=== PATIENT | male | born 1950 | race Hispanic/Latino ===

== ENCOUNTER 2018-08-07 12:14 | Observation (INO) | payer MEDICARE ==
[~2018-08-07] VITALS: Ht 160 cm; Wt 71.8 kg
[2018-08-07] MEDS ORDERED: NITROGLYCERIN 2% OINT 1 GM PKT TOP ONE (12:30)
[2018-08-07] MEDS ORDERED: ASPIRIN 81 MG CHEW TAB PO ONE ×3 (12:30→14:45)
[2018-08-07 12:38] LABS: BASOPHILS % 0.5 % (0.0-1.0); EOSINOPHILS # (AUTO) 0.1 (0.0-0.4); EOSINOPHILS % 1.3 % (0.0-6.0); HEMATOCRIT 44.7 % (38.2-49.6); HEMOGLOBIN 15.4 g/dL (14.0-18.0); LYMPHOCYTES # (AUTO) 1.4 (1.0-3.2); LYMPHOCYTES % 17.8 % (18.0-39.1); MEAN CORPUSCULAR HEMOGLOBIN 29.8 pg (28-32); MEAN CORPUSCULAR HGB CONC 34.5 g/dL (31-35); MEAN CORPUSCULAR VOLUME 86.5 fL (81-99); MONOCYTES % 12.3 % (4.4-11.3); NEUTROPHILS # (AUTO) 5.3 (2.1-6.9); NEUTROPHILS % 67.8 % (38.7-80.0); PLATELET COUNT 261 x10e3/uL (140-360); RED BLOOD COUNT 5.17 x10e6/uL (4.3-5.7); RED CELL DISTRIBUTION WIDTH 13.2 % (11.7-14.4)
[2018-08-07 12:51] LABS: INR 1.15; PROTHROMBIN TIME 13.8 seconds (11.9-14.5)
[2018-08-07 12:52] LABS: PARTIAL THROMBOPLASTIN TIME 30.6 seconds (23.8-35.5)
[2018-08-07 12:58] LABS: ALANINE AMINOTRANSFERASE 22 IU/L (0-55); ALBUMIN 3.8 g/dL (3.5-5.0); ALBUMIN/GLOBULIN RATIO 1.2 (0.8-2.0); ALKALINE PHOSPHATASE 63 IU/L (40-150); ANION GAP 14.8 mmol/L (8-16); BLOOD UREA NITROGEN 13 mg/dL (7-26); BUN/CREATININE RATIO 13 (6-25); CALCIUM 9.6 mg/dL (8.4-10.2); CARBON DIOXIDE 26 mmol/L (22-29); CHLORIDE 105 mmol/L (98-107); CREATINE KINASE 68 IU/L (30-200); EST GLOMERULAR FILTRATION RATE > 60 ML/MIN (60-); GLUCOSE 87 mg/dL (74-118); POTASSIUM 3.8 mmol/L (3.5-5.1); SODIUM 142 mmol/L (136-145)
--- NOTE | 2018-08-07 14:34 | Diagnostic Imaging Report ---
A single frontal view of the chest. HISTORY: Chest pain, chest tightness, hard to breathe, one week COMPARISON: None available. DISCUSSION: Portable technique, limits sensitivity of the exam. Soft tissue attenuation partially limits sensitivity of the exam. Multiple overlying monitoring leads. Tubes/Lines: None Lungs and pleura: Low lung volumes result in bibasilar vascular crowding, accentuation of the pulmonary interstitial markings, central pulmonary vasculature, and the cardiac silhouette. Allowing for these limitations, the findings are as follows: No evidence of a consolidative pneumonia or pulmonary alveolar edema. No definite pleural effusion or pneumothorax is identified. Heart and mediastinum: The cardiomediastinal silhouette appears unremarkable. Bones: No acute osseous lesion is identified, given this limited exam. IMPRESSION: No acute radiographic abnormality. Signed by: Dr. Haseeb Fields D.O., M.M.M. on 08/07/2018 2:30 PM
[2018-08-07] MEDS ORDERED: ONDANSETRON HCL INJ 2 MG/ML VIAL IV PRN (14:45)
[2018-08-07] MEDS ORDERED: ENOXAPARIN INJ 80 MG/0.8 ML SYR SC SCH (15:00)
[2018-08-07] MEDS ORDERED: IRBESARTAN150 MG PO (15:07)
[2018-08-07] MEDS ORDERED: METFORMIN HCL500 M2 PO (15:07)
[2018-08-07] MEDS ORDERED: PRAVASTATIN SOD40 MG (15:07)
[2018-08-07] MEDS ORDERED: GLIMEPIRIDE2 MG PO (15:07)
[2018-08-07] MEDS ORDERED: DEXTROSE 50% SYRINGE 50 ML IV PRN (15:45)
[2018-08-07 16:00] VITALS: BP 122/69
[2018-08-07] MEDS ORDERED: NITROGLYCERIN 0.4 MG SUBL SL PRN (16:15)
[2018-08-07 16:20] VITALS: BP 122/69
[2018-08-07 16:23] VITALS: BP 122/69
[2018-08-07] MEDS: INSULIN REGULAR, HUMAN 100 UNIT/1 ML 3ML VIAL SQ SCH ×2 (16:30→21:00)
[2018-08-07] MEDS: METOPROLOL TARTRATE 25 MG TAB PO SCH (16:49)
[2018-08-07] MEDS ORDERED: CLOPIDOGREL BISULFATE 75 MG TAB PO ONE (17:10)
[2018-08-07] MEDS ORDERED: ENOXAPARIN INJ 80 MG/0.8 ML SYR SC NR (17:30)
[2018-08-07] MEDS ORDERED: NITROGLYCERIN 2% OINT 1 GM PKT TOP SCH (18:00)
[2018-08-07 20:00] VITALS: BP 122/58
[2018-08-07] MEDS ORDERED: ATORVASTATIN 20 MG TAB PO SCH (21:00)
[2018-08-07 21:14] LABS: CREATINE KINASE 58 IU/L (30-200)
--- NOTE | 2018-08-07 21:51 | Consultation ---
DATE OF CONSULTATION: August 07, 2018 CARDIOLOGY CONSULTATION REASON FOR CONSULTATION: Chest pain. HISTORY OF PRESENT ILLNESS: Mr. Easton is a 67-year-old gentleman with past medical history of hypertension, type 2 diabetes for the past 4 years, hypercholesterolemia, positive family history of coronary artery disease in his father who in his 80s with a heart attack, who also has a remote history of abnormal stress test in 2010 that was not subsequently followed by further care and management. Patient is on testosterone shots every so often for hormonal replacement therapy and received his last dose on Monday. Patient then approximately 24 hours later started developing substernal chest pressure, tightness, heaviness sensation that is brought upon with minimal activity and exertion and has been progressively worsening fatigue and new-onset exercise intolerance. He thought that this initially was a reaction to the testosterone therapy, however, his symptoms had progressively worsened. He went to go see his physicians at [facility] and developed an episode of chest pressure, tightness, heaviness, very typical angina symptoms which prompted STAT EKG and 911 being called in the clinic. Patient was brought over to this institution where he was placed on a nitro patch, which subsequently improved his symptoms and reports now the chest pain is about a 1/10 in intensity. The tightness does not radiate, it is worsened with activity and is very typical anginal in nature. His first biomarkers shows a troponin of less than 0.001, and EKG shows subtle T-wave changes in inferior leads, which could be consistent with ischemia. We had a long discussion with the patient in terms of management options including observation versus ischemic risk stratification versus direct cardiac catheterization. PAST MEDICAL HISTORY: 1. Hypertension, essential. 2. Type 2 diabetes, diagnosed 4 years ago. 3. Hypercholesterolemia. 4. Hypogonadism, on testosterone replacement therapy. PAST SURGICAL HISTORY: 1. 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 2. History of kidney stone removal many years ago. FAMILY HISTORY: Mother alive, has heart issues. Father at age of 80 with a heart attack. SOCIAL HISTORY: He is a lifelong nonsmoker. Denies any alcohol or illicit drug use. ALLERGIES: NO KNOWN DRUG ALLERGIES. HOME MEDICATIONS: Include: 1. Glimepiride 2 mg t.i.d. 2. Irbesartan 150 mg nightly. 3. Metformin 1000 mg b.i.d. 4. Pravastatin 40 mg nightly. REVIEW OF SYSTEMS: GENERAL: Denies any fevers, chills, or any weight changes. HEENT: No headaches, visual complaints, sore throat, stuffy nose. RESPIRATORY: Denies any pleuritic chest pain. Has exertional dyspnea with worsening exercise tolerance. CARDIOVASCULAR: As per HPI. Denies any subjective palpitations, syncope, near syncope. GI: Denies any abdominal pain, bright red blood per rectum, melena, hematemesis. : Denies any dysuria, pyuria, hematuria, or changes in urinary frequency. MUSCULOSKELETAL: Denies any back pains, knee pains, or typical claudication symptoms or swelling. NEUROLOGIC: Denies any focal weakness, numbness, tingling, seizures, headaches, history of TIA or stroke. Remainder of review of systems negative otherwise mentioned. PHYSICAL EXAMINATION: VITAL SIGNS: Height of 63 inches, weight 152 pounds. BMI is 26.9. Temperature of 96.5, pulse of 65, respiratory rate of 19, blood pressure 122/69, O2 sat 94% on room air. GENERAL: This is a well-nourished, well-developed gentleman, who is currently in no apparent distress. HEENT: Pupils are equal, round, and reactive to light. Extraocular movements are intact. Oropharynx is clear. NECK: No elevation of jugular venous pulsation. No carotid bruits. CARDIOVASCULAR: Regular rate and rhythm. Normal S1 and S2. Soft 1/6 systolic murmur at the left lower sternal border. LUNGS: Showed some bibasilar crackles and decreased air entry. ABDOMEN: Soft, nontender, nondistended. Normoactive bowel sounds. No hepatosplenomegaly. There is stigmata of old laparoscopic surgical scar. EXTREMITIES: Warm with 2+ bilateral radial pulses, 1+ to 2+ bilateral femoral pulses, 1+ pedal pulses. NEUROLOGIC: Cranial nerves II-XII are intact. Strength is 5/5 and grossly nonfocal. PSYCH: Normal fluent speech. Appropriate affect. No anxiety and delusions. Chest x-ray reveals bibasilar atelectasis. EKG reveals sinus rhythm, subtle T-wave changes in the inferior leads could be consistent with ischemia. DIAGNOSES: 1. Clinical presentation very compatible with unstable angina pectoris. 2. History of abnormal stress test. 3. Hypertension, essential. 4. Type 2 diabetes. 5. Hypercholesterolemia. 6. Questionable pulmonary edema on examination and may be some early heart failure. PLAN/RECOMMENDATIONS: 1. From a cardiovascular standpoint, will go ahead and monitor on telemetry, check serial cardiac biomarkers, load him on aspirin, and give him 600 mg Plavix load. 2. Will give him 1 dose of subcutaneous Lovenox for systemic anticoagulant therapy for management of ACS. 3. Will cycle cardiac enzymes. 4. Check echocardiogram. 5. Beta-elmer therapy, statin therapy. 6. I will check lipid profile, A1c, TSH. 7. Largely patient has such a high pretest probability of CAD with very typical CCS for angina symptoms, that has been escalating with a history of abnormal stress test. Based on appropriate next step therapy, patient needs definitive ischemic evaluation without coronary angiography and with an eye towards revascularization. Job#: [id number]
[2018-08-07] MEDS: SODIUM CHLORIDE 0.9% 1000ML 1,000 ML IV SCH (23:31)
[2018-08-08] VITALS (15 sets, daily range): BP systolic 121–171; BP diastolic 25–89
[2018-08-08 04:48] LABS: BASOPHILS % 0.4 % (0.0-1.0); EOSINOPHILS # (AUTO) 0.2 (0.0-0.4); EOSINOPHILS % 2.1 % (0.0-6.0); HEMATOCRIT 40.9 % (38.2-49.6); HEMOGLOBIN 13.7 g/dL (14.0-18.0); LYMPHOCYTES # (AUTO) 1.5 (1.0-3.2); LYMPHOCYTES % 14.2 % (18.0-39.1); MEAN CORPUSCULAR HEMOGLOBIN 29.6 pg (28-32); MEAN CORPUSCULAR HGB CONC 33.5 g/dL (31-35); MEAN CORPUSCULAR VOLUME 88.3 fL (81-99); MONOCYTES # (AUTO) 1.3 (0.2-0.8); MONOCYTES % 12.5 % (4.4-11.3); NEUTROPHILS # (AUTO) 7.2 (2.1-6.9); PLATELET COUNT 244 x10e3/uL (140-360); RED BLOOD COUNT 4.63 x10e6/uL (4.3-5.7); RED CELL DISTRIBUTION WIDTH 13.5 % (11.7-14.4)
[2018-08-08 04:59] LABS: INR 1.21; PROTHROMBIN TIME 14.4 seconds (11.9-14.5)
[2018-08-08 05:09] LABS: ANION GAP 14.3 mmol/L (8-16); BLOOD UREA NITROGEN 17 mg/dL (7-26); BUN/CREATININE RATIO 15 (6-25); CALCIUM 8.8 mg/dL (8.4-10.2); CARBON DIOXIDE 27 mmol/L (22-29); CHLORIDE 105 mmol/L (98-107); CHOLESTEROL 137 MD/DL (0-199); CREATININE, SERUM 1.11 mg/dL (0.72-1.25); EST GLOMERULAR FILTRATION RATE > 60 ML/MIN (60-); GLUCOSE 103 mg/dL (74-118); HDL CHOLESTEROL 34 MG/DL (40-60); LDL CHOLESTEROL 85 MG/DL (60-130); POTASSIUM 4.3 mmol/L (3.5-5.1); SODIUM 142 mmol/L (136-145); TRIGLYCERIDES 92 MG/DL (0-149)
[2018-08-08] MEDS: INSULIN REGULAR, HUMAN 100 UNIT/1 ML 3ML VIAL SQ SCH ×4 (07:30→21:00)
[2018-08-08] MEDS: SODIUM CHLORIDE 0.9% 1000ML 1,000 ML IV SCH ×2 (07:50→20:11)
[2018-08-08 08:05] LABS: CREATINE KINASE 47 IU/L (30-200)
[2018-08-08] MEDS: METOPROLOL TARTRATE 25 MG TAB PO SCH ×2 (08:12→16:45)
[2018-08-08] MEDS ORDERED: ASPIRIN 81 MG ENTERIC COATED PO SCH (09:00)
[2018-08-08] MEDS ORDERED: LIDOCAINE HCL 2% LOCAL 20 ML VIAL ONE (10:25)
[2018-08-08] MEDS ORDERED: HEPARIN SOD/SOD CHLORIDE 2,000 ML ONE (10:25)
[2018-08-08] MEDS ORDERED: IOPAMIDOL 370 MG/ML 200 ML INFUS..BTL INJ ONE ×2 (10:26→11:20)
[2018-08-08] MEDS ORDERED: FENTANYL CITRATE/PF 100MCG/2 ML INJ ONE (10:35)
[2018-08-08] MEDS ORDERED: SODIUM CHLORIDE 0.9% 1000ML 1,000 ML ONE (10:35)
[2018-08-08] MEDS ORDERED: MIDAZOLAM HCL 2 MG/2 ML VIAL ONE (10:35)
[2018-08-08] MEDS ORDERED: BIVALRIUDIN 250 MG/VIAL VIAL IV ONE (11:09)
[2018-08-08] MEDS ORDERED: SODIUM CHLORIDE 0.9% 50ML 50 ML ONE (11:10)
[2018-08-08] MEDS ORDERED: NITROGLYCERIN/D5W 200 MCG/ML 250 ML ONE (11:12)
[2018-08-08] MEDS ORDERED: CLOPIDOGREL BISULFATE 75 MG TAB ONE (11:36)
[2018-08-08] MEDS ORDERED: CEFAZOLIN SOD 2 GM/D5W 50ML 50 ML IV ONE (11:36)
--- NOTE | 2018-08-08 12:39 | Operative Report ---
DATE OF PROCEDURE: August 08, 2018 TITLE OF PROCEDURE: Left cardiac catheterization. INDICATIONS: Unstable coronary syndrome. TECHNICAL DETAILS: After the usual sterile preparation and draping procedure, intravenous Versed and fentanyl given for sedation, local Xylocaine for anesthesia. A 4-Namibian sheath established in place. Starr left 4 and 3DRC catheters to engage the coronary. Pigtail for left ventriculogram and hemodynamic measurement. A decision was made to proceed with intervention. The existing 4-Namibian sheath was exchanged to 6-Namibian sheath. Guiding catheter was 6-Namibian XB3.5. Stenting was 2-5 x 15 and 2-5 x 12 Resolute Pierce stent. The proximal stent deployed at 17 atmospheres, the distal stent at 12 atmospheres because of mismatch in size. Repeated angiogram showed excellent results. Successful closure of the right common femoral artery was done with AngioSeal device. No complication and no blood loss. RESULTS A. Coronary angiogram 1. Left main free of disease. 2. LAD 99% lesion after a small diagonal 50% mid to distal part. 3. Circumflex coronary artery, minimal plaquing. 4. Right coronary artery 30% ostial lesion. B. Hemodynamic; aorta pressure 155/84, LV pressure 155/20. C. Left ventriculogram is a right anterior oblique view showed normal size ventricle with ejection fraction of 55%. PCI procedure, guiding catheter is 6-Namibian XB3 LAD wire stent 2-5 x 15 and 2-5 x 12, [place] stent up to 17 atmosphere and 12 atmospheres. Lesion prior to intervention at 99% following intervention at 0 percent. COMPLICATIONS: None. BLOOD LOSS: Minimum. Job#: [id number] CELESTE
[2018-08-08] MEDS: ASPIRIN 81 MG ENTERIC COATED PO SCH (16:59)
[2018-08-08] MEDS ORDERED: ACETAMINOPHEN 325 MG TAB PO PRN (20:30)
[2018-08-08] MEDS ORDERED: ACETAMINOPHEN/CODEINE 300MG - 30MG TAB PO PRN (20:30)
[2018-08-08] MEDS ORDERED: ATORVASTATIN 20 MG TAB PO SCH (21:00)
[2018-08-09] VITALS: BP 147/82
[2018-08-09 04:00] VITALS: BP 161/95
[2018-08-09 04:38] LABS: BASOPHILS % 0.4 % (0.0-1.0); EOSINOPHILS # (AUTO) 0.2 (0.0-0.4); HEMATOCRIT 40.3 % (38.2-49.6); HEMOGLOBIN 13.5 g/dL (14.0-18.0); LYMPHOCYTES # (AUTO) 1.7 (1.0-3.2); LYMPHOCYTES % 23.3 % (18.0-39.1); MEAN CORPUSCULAR HGB CONC 33.5 g/dL (31-35); MEAN CORPUSCULAR VOLUME 89.6 fL (81-99); MONOCYTES # (AUTO) 1.1 (0.2-0.8); MONOCYTES % 14.6 % (4.4-11.3); NEUTROPHILS # (AUTO) 4.4 (2.1-6.9); NEUTROPHILS % 59.6 % (38.7-80.0); PLATELET COUNT 214 x10e3/uL (140-360); RED CELL DISTRIBUTION WIDTH 13.5 % (11.7-14.4)
[2018-08-09 04:56] LABS: ANION GAP 13.3 mmol/L (8-16); BLOOD UREA NITROGEN 11 mg/dL (7-26); BUN/CREATININE RATIO 10 (6-25); CALCIUM 8.2 mg/dL (8.4-10.2); CARBON DIOXIDE 24 mmol/L (22-29); CHLORIDE 108 mmol/L (98-107); CREATININE, SERUM 1.12 mg/dL (0.72-1.25); EST GLOMERULAR FILTRATION RATE > 60 ML/MIN (60-); GLUCOSE 99 mg/dL (74-118); POTASSIUM 4.3 mmol/L (3.5-5.1); SODIUM 141 mmol/L (136-145)
[2018-08-09] MEDS: SODIUM CHLORIDE 0.9% 1000ML 1,000 ML IV SCH (05:53)
[2018-08-09 08:00] VITALS: BP 156/89
[2018-08-09] MEDS: INSULIN REGULAR, HUMAN 100 UNIT/1 ML 3ML VIAL SQ SCH ×2 (08:00→11:29)
[2018-08-09] MEDS: ASPIRIN 81 MG ENTERIC COATED PO SCH (08:37)
[2018-08-09] MEDS: METOPROLOL TARTRATE 25 MG TAB PO SCH (08:37)
[2018-08-09] MEDS ORDERED: CLOPIDOGREL BISULFATE 75 MG TAB PO SCH (09:00)
[2018-08-09] MEDS ORDERED: LOSARTAN POTASSIUM 100 MG TAB PO NR (10:00)
[2018-08-09] MEDS ORDERED: METOPROLOL TARTRATE 25 MG TAB PO NR (10:00)
--- NOTE | 2018-08-09 10:18 | Discharge Summary ---
PRIMARY CARE DOCTOR: Gonzalez Alegre M.D., with [facility]. FINAL DIAGNOSIS: Coronary artery disease with 95% mid left anterior descending, status post stent. SECONDARY DIAGNOSES 1. Hypertension. 2. Dyslipidemia. 3. Diabetes. LAUNDRY HELPER: Dr. Manning, cardiology. PROCEDURES/STUDIES PERFORMED 1. Echocardiogram. 2. Left heart catheterization. HISTORY: Per [facility] and [facility]. HOSPITAL COURSE: The patient was admitted. Plavix 600 mg was loaded. The patient received a dose of Lovenox. He subsequently underwent left heart cath with a stent placed to the mid left anterior descending artery. The patient currently is doing well. He understands he needs to be on aspirin and Plavix. The patient will also be on beta elmer and an angiotensin receptor elmer along with his statin. He will resume his metformin tomorrow, which is 48 hours after contrast exposure. I have informed his PCP to set him up with [facility] followup in a week. The patient was seen and examined today. CONDITION ON DISCHARGE: Stable. DISCHARGE MEDICATIONS: Please see medication reconciliation form. DEYANIRA ANDREW M.D. Job#: [id number] cc:GONZALEZ ALEGRE M.D.
[2018-08-09] MEDS ORDERED: PLAVIX75 MG PO (10:27)
[2018-08-09] MEDS ORDERED: METOPROLOL SUCC50 MG PO (10:28)
--- OUTSIDE RECORDS SUMMARY | 2018-09-04 04:16 | XMS REPORT ---
Author Author [facility] Address Unknown Phone Unavailable Care Team Providers Care Oracle Pl Sql Developer Name Role Phone Ayush LAW Unavailable Unavailable Problems This patient has no known problems. Allergies, Adverse Reactions, Alerts This patient has no known allergies or adverse reactions. Medications This patient has no known medications. Results Test Description Test Time Test Comments Text Results Atomic Results Result Comments CHEST SINGLE (PORTABLE) 2018-08-07 14:27:00 [place] [id number] Patient Name: SAURABH WARD MR #: [id number] : 1950 Age/Sex: 67/M Req #: [id number] [facility] Physician: Ordered by: ANAHI LAW MD Report #: [id number] Location: ER Room/Bed: Procedure: [id number] DX/CHEST SINGLE (PORTABLE) Exam Date: 08/07/18 Exam Time: 1350 REPORT STATUS: Signed A single frontal view of the chest. HISTORY: Chest pain, chest tightness, hard to breathe, one week COMPARISON: None available. DISCUSSION: Portable technique, limits sensitivity of the exam. Soft tissue attenuation partially limits sensitivity of the exam. Multiple overlying monitoring leads. Tubes/Lines: None Lungs and pleura: Low lung volumes result in bibasilar vascular crowding, accentuation of the pulmonary interstitial markings, central pulmonary vasculature, and the cardiac silhouette. Allowing for these limitations, the findings are as follows: No evidence of a consolidative pneumonia or pulmonary alveolar edema. No definite pleural effusion or pneumothorax is identified. Heart and mediastinum: The cardiomediastinal silhouette appears unremarkable. Bones: No acute osseous lesion is identified, given this limited exam. IMPRESSION: No acute radiographic abnormality. Signed by: Dr. Emeka Fields D.O., M.M.M. on 08/07/2018 2:30 PM Dictated By: EMEKA FIELDS DO 1430 Transcribed By: JESSIE on 08/07/18 1430 COPY TO: ANAHI LAW MD
== END 2018-08-09 13:01 | disposition home or self-care (01) ==
LOC: ER 12:14 → ERHOLD 16:07 → MED/SURG2 16:11
PROVIDERS: ADMIT Internal Medicine; ATTEND Internal Medicine
DX: I25.110 Atherosclerotic heart disease of native coronary artery with unstable angina pectoris (principal); I34.0 Nonrheumatic mitral (valve) insufficiency; I07.1 Rheumatic tricuspid insufficiency; I10 Essential (primary) hypertension; E78.00 Pure hypercholesterolemia, unspecified; E78.5 Hyperlipidemia, unspecified; E11.9 Type 2 diabetes mellitus without complications; Z79.02 Long term (current) use of antithrombotics/antiplatelets; Z79.84 Long term (current) use of oral hypoglycemic drugs; Z82.49 Family history of ischemic heart disease and other diseases of the circulatory system
CPT/HCPCS: 93306; 93458; C9600; 36415; 71045; 80048; 80053; 80061; 82550; 82553; 82948; 83036; 84443; 84484; 85025; 85610; 85730; 92928; 93005; 96360; 96361; 99284; C1766; C1874; G0378; J0583; J0690; J2001; J2250; J7030; Q9967